=== PATIENT | male | born 1995 | race Asian ===

== ENCOUNTER 2022-07-20 05:33 | Day surgery (SDC) | payer OTHER ==
[2022-07-17 10:01] VITALS: BMI 20.2
[2022-07-20] MEDS ORDERED: MIDAZOLAM HCL 2 MG/2 ML SINGLE DOSE VIAL ONE (09:24)
[2022-07-20] MEDS ORDERED: SODIUM CHLORIDE 500 ML IV ONE (10:15)
[2022-07-20] MEDS ORDERED: MIDAZOLAM HCL 2 MG/2 ML SINGLE DOSE VIAL IVPUSH ONE ×2 (10:23→10:35)
[2022-07-20] MEDS ORDERED: FENTANYL CITRATE/PF 50 MCG/ML VIAL IVPUSH ONE ×2 (10:23→10:35)
[2022-07-20 11:40] VITALS: RESP 18
[2022-07-20 13:36] VITALS: BP 109/61; PULSE 60; TEMP 97.7
== END 2022-07-20 13:55 | disposition home or self-care (01) ==
LOC: JRADIR 05:33
PROVIDERS: ATTEND Internal Medicine Gastroenterology
PROC: 0FB03ZX Excision of Liver, Percutaneous Approach, Diagnostic (ICD-10-PCS; principal; 2022-07-20)
DX: K76.0 Fatty (change of) liver, not elsewhere classified (principal)
CPT/HCPCS: 47000; 76942-TC; 87899; 88307-TC; 88313-TC